=== PATIENT | male | born 1945 | race Caucasian/White ===

== ENCOUNTER → 2023-10-14 11:30 | Outpatient (REF) | payer OTHER, SELFPAY | LOC: DHCBC/DCA 11:30 | PROVIDERS: ATTENDING PHYSICIAN Internal Medicine; FAMILY PHYSICIAN Family Medicine | DX: I48.21 Permanent atrial fibrillation (principal); I10 Essential (primary) hypertension; I45.4 Nonspecific intraventricular block; I36.1 Nonrheumatic tricuspid (valve) insufficiency | CPT/HCPCS: 78452; 93017; A9500; J2785 ==

== ENCOUNTER → 2023-10-28 09:54 | Outpatient (REF) | payer OTHER, SELFPAY | LOC: RCS 09:54 | PROVIDERS: ATTENDING PHYSICIAN Internal Medicine; FAMILY PHYSICIAN Family Medicine | DX: I10 Essential (primary) hypertension (principal); I48.21 Permanent atrial fibrillation; I45.4 Nonspecific intraventricular block; I36.1 Nonrheumatic tricuspid (valve) insufficiency | CPT/HCPCS: 93306 ==

== ENCOUNTER → 2024-12-07 09:58 | Outpatient (REF) | payer OTHER, SELFPAY | LOC: RAD 09:58 | PROVIDERS: ATTENDING PHYSICIAN Family Medicine | DX: R05.1 Acute cough (principal) | CPT/HCPCS: 71046 ==